=== PATIENT | male | born 1990 | race Caucasian/White ===

== ENCOUNTER 2021-11-03 08:17 | Outpatient (CLI) | payer OTHER | END 2021-11-03 08:20 | disposition home or self-care (01) | LOC: NUCLEAR 08:17 | PROVIDERS: ATTEND Family Medicine | DX: M79.604 Pain in right leg (principal); R60.0 Localized edema; I87.2 Venous insufficiency (chronic) (peripheral) ==

== ENCOUNTER 2021-11-04 08:04 | Outpatient (CLI) | payer OTHER | END 2021-11-04 08:06 | disposition home or self-care (01) | LOC: NUCLEAR 08:04 | PROVIDERS: ATTEND Family Medicine | DX: M79.604 Pain in right leg (principal); R60.0 Localized edema; I73.9 Peripheral vascular disease, unspecified ==

== ENCOUNTER 2022-10-24 01:30 | Outpatient (CLI) | payer OTHER | END 2022-10-24 23:00 | disposition home or self-care (01) | LOC: LAB 01:30 | PROVIDERS: ATTEND Obstetrics & Gynecology | DX: Z20.828 Contact with and (suspected) exposure to other viral communicable diseases (principal); Z20.818 Contact with and (suspected) exposure to other bacterial communicable diseases ==

== ENCOUNTER → 2023-09-25 10:24 | Outpatient (CLI) | payer OTHER ==
[2023-09-25 11:13] LABS: HEMATOCRIT 38.6 % (39.0-48.0); HEMOGLOBIN 13.2 g/dL (13-16.00); MEAN CELL VOLUME 82.9 fL (80.0-100.00); MEAN CORPUSCULAR HEMOGLOBIN 28.4 pg (27.00-32.0); MEAN CORPUSCULAR HGB CONC 34.2 g/dl (32.0-36.0); PLATELET COUNT 248 K/uL (150-450); RED BLOOD COUNT 4.65 M/uL (4.00-6.00); RED CELL DISTRIBUTION WIDTH 14.2 % (11.5-14.5)
[2023-09-25 11:37] LABS: URINE PROT QUANT 24HR 8.8 MG/DL
[2023-09-25 11:38] LABS: URINE PROT QUANT 24 HR 134.2 MG/24HR (42-225)
[2023-09-25 11:46] LABS: % SATURACION 26.5 % (20-50); BILIRUBIN TOTAL 0.45 mg/dL (0.3-1.2); CALCIUM 9.2 mg/dL (8.5-10.1); CREATININE SERUM 1.14 mg/dL (0.70-1.30); FERRITIN 128.1 NG/ML (26-388); GFR 73.98; GLOBULINA 3.3 G/DL (2.4-3.5); POTASSIUM 4.16 mEq/L (3.5-5.1); TOTAL PROTEIN 7.3 gm/dL (6.4-8.2)
[2023-09-25 11:50] LABS: CREATINE CLEARANCE 117.3 ML/MIN (97-137); CREATININE SERUM 1.14 mg/dL (0.8-1.3)
[2023-09-25 13:43] LABS: FOLIC ACID 15.57 ng/ml (4.78-20)
[2023-09-25 13:54] LABS: MANUAL PLATELET COUNT 444
[2023-09-25 13:55] LABS: PLATELET ESTIMATE NORMAL (NORMAL)
== END | disposition home or self-care (01) ==
LOC: LAB 10:24
PROVIDERS: ATTEND Internal Medicine Hematology & Oncology
DX: D50.8 Other iron deficiency anemias (principal); R79.9 Abnormal finding of blood chemistry, unspecified; I10 Essential (primary) hypertension; R74.02 Elevation of levels of lactic acid dehydrogenase [LDH]; K76.89 Other specified diseases of liver; D63.1 Anemia in chronic kidney disease; D51.1 Vitamin B12 deficiency anemia due to selective vitamin B12 malabsorption with proteinuria; D51.0 Vitamin B12 deficiency anemia due to intrinsic factor deficiency; D51.3 Other dietary vitamin B12 deficiency anemia; K29.50 Unspecified chronic gastritis without bleeding; G47.33 Obstructive sleep apnea (adult) (pediatric); D72.818 Other decreased white blood cell count

== ENCOUNTER 2024-06-22 10:16 | Outpatient (CLI) | payer OTHER ==
[2024-06-22 11:01] LABS: URINE APPEARANCE Clear; URINE BILIRRUBIN Negative (NEGATIVE); URINE BLOOD Negative; URINE COLOR Yellow; URINE GLUCOSE Negative (NEGATIVE); URINE KETONE Negative (NEGATIVE); URINE LEUKOCYTE Negative; URINE NITRATE Negative; URINE PROTEIN Negative (NEGATIVE); URINE UROBILINOGEN 0.2 E.U./dl
[2024-06-22 11:05] LABS: URINE BACTERIA 11.3 uL (0.0-1933); URINE EPITHELIAL CELLS 1.5 uL (0.0-38.8); URINE WBC 2.4 uL (0.0-23.2)
[2024-06-22 11:15] LABS: HEMATOCRIT 41.1 % (39.0-48.0); HEMOGLOBIN 13.8 g/dL (13-16.00); MEAN CELL VOLUME 84.1 fL (80.0-100.00); MEAN CORPUSCULAR HEMOGLOBIN 28.1 pg (27.00-32.0); MEAN CORPUSCULAR HGB CONC 33.5 g/dl (32.0-36.0); PLATELET COUNT 243 K/uL (150-450); RED BLOOD COUNT 4.89 M/uL (4.00-6.00); RED CELL DISTRIBUTION WIDTH 13.6 % (11.5-14.5)
[2024-06-22 11:16] LABS: URINE RBC 1.2 uL (0.0-20.8)
[2024-06-22 11:20] LABS: CALCIUM 9.2 mg/dL (8.5-10.1); CHOL HDL RATIO 3.6 (0-5.0); CREATININE SERUM 1.21 mg/dL (0.70-1.30); GFR 69.06; PHOSPHOROUS 3.4 mg/dL (2.5-4.9); POTASSIUM 4.27 mEq/L (3.5-5.1); URIC ACID 4.3 mg/dL (3.5-8.5)
[2024-06-26 09:11] LABS: a:g ratio 1.3 (0.7-1.7); alpha 1 g 0.2 g/dL (0.0-0.4); alpha 2 0.7 g/dL (0.4-1.0); beta g 0.9 g/dL (0.7-1.3); gamma g 1.2 g/dL (0.4-1.8); globulin t 3.1 g/dL (2.2-3.9); m spike Not Observed g/dL (Not Observed); prot total 7.1 g/dL (6.0-8.5)
== END 2024-06-22 10:17 | disposition home or self-care (01) ==
LOC: LAB 10:16
PROVIDERS: ATTEND Internal Medicine Nephrology
DX: N18.1 Chronic kidney disease, stage 1 (principal); R80.9 Proteinuria, unspecified; E78.5 Hyperlipidemia, unspecified; E11.22 Type 2 diabetes mellitus with diabetic chronic kidney disease

== ENCOUNTER 2024-06-25 08:44 | Outpatient (CLI) | payer OTHER ==
[2024-06-25 09:32] LABS: URINE PROT QUANT 24HR 9.9 MG/DL
[2024-06-25 09:33] LABS: URINE PROT QUANT 24 HR 193.05 MG/24HR (42-225)
[2024-06-25 10:35] LABS: CREATINE CLEARANCE 157.8 ML/MIN (97-137); CREATININE SERUM 1.23 mg/dL (0.8-1.3)
== END 2024-06-25 08:50 | disposition home or self-care (01) ==
LOC: LAB 08:44
PROVIDERS: ATTEND Internal Medicine Nephrology
DX: N18.1 Chronic kidney disease, stage 1 (principal); R80.9 Proteinuria, unspecified; E78.5 Hyperlipidemia, unspecified; E11.22 Type 2 diabetes mellitus with diabetic chronic kidney disease

== ENCOUNTER → 2025-03-17 09:54 | Outpatient (CLI) | payer OTHER ==
[2025-03-17 11:41] LABS: BASO % 0.9 % (0.1-1.2); EOS # 0.12 (0.04-0.54); EOS % 3.6 % (0.7-7.0); HEMATOCRIT 37.9 % (40.1-51.0); HEMOGLOBIN 12.8 g/dL (13.7-17.5); LYMPH % 38.7 % (19.3-53.1); MEAN CORPUSCULAR HEMOGLOBIN 27.5 pg (25.6-32.2); MONO # 0.35 (0.24-0.82); MONO % 10.4 % (4.7-12.5); NEUT # 1.55 (1.56-6.13); NEUT % 46.1 % (34.0-71.1); PLATELET COUNT 249 K/uL (163-369); RED BLOOD COUNT 4.65 M/uL (4.63-6.08); RED CELL DISTRIBUTION WIDTH 12.8 % (11.6-14.4)
[2025-03-17 13:44] LABS: % SATURACION 40.8 % (20-50); BILIRUBIN TOTAL 0.46 mg/dL (0.3-1.2); CALCIUM 8.9 mg/dL (8.5-10.1); CREATININE SERUM 1.03 mg/dL (0.70-1.30); FERRITIN 157.9 NG/ML (26-388); GFR 82.67; GLOBULINA 3.2 G/DL (2.4-3.5); POTASSIUM 4.51 mEq/L (3.5-5.1); TOTAL PROTEIN 7.2 gm/dL (6.4-8.2)
[2025-03-17 16:16] LABS: FOLIC ACID 13.01 ng/ml (4.78-20)
[2025-03-19 19:08] LABS: ERYTHROPOIETIN 5.9 mIU/mL (2.6-18.5)
== END | disposition home or self-care (01) ==
LOC: LAB 09:54
PROVIDERS: ATTEND Internal Medicine Hematology & Oncology
DX: D72.818 Other decreased white blood cell count (principal); D51.0 Vitamin B12 deficiency anemia due to intrinsic factor deficiency; D51.3 Other dietary vitamin B12 deficiency anemia; K29.50 Unspecified chronic gastritis without bleeding; G47.33 Obstructive sleep apnea (adult) (pediatric); D50.8 Other iron deficiency anemias; R79.9 Abnormal finding of blood chemistry, unspecified; I10 Essential (primary) hypertension; R74.02 Elevation of levels of lactic acid dehydrogenase [LDH]; K76.89 Other specified diseases of liver; D51.1 Vitamin B12 deficiency anemia due to selective vitamin B12 malabsorption with proteinuria; D63.1 Anemia in chronic kidney disease